=== PATIENT | female | born 1985 | race Caucasian/White ===

== ENCOUNTER 2021-11-30 06:23 | Day surgery (SDC) | payer OTHER ==
[2021-11-28 10:11] VITALS: BMI 26.5
[2021-11-30] MEDS ORDERED: AFRIN NASAL MIST 15 ML BOT ONE (07:24)
[2021-11-30 08:06] LABS: SARS-CoV-2 NAA Rapid Test Not Detected (NotDetected)
[2021-11-30] MEDS ORDERED: Xylocaine 1% w/ Epi 1:100K 10 ML VIAL ONE ×2 (08:45→09:49)
[2021-11-30] MEDS ORDERED: Oxymetazoline HCl 0.05% (30 ML BOT) ONE (08:45)
[2021-11-30] MEDS ORDERED: Fentanyl 100 MCG/2 ML VIAL ONE ×3 (08:48→10:22)
[2021-11-30] MEDS ORDERED: Lidocaine 1% PF 5 ML VIAL ONE (09:12)
[2021-11-30] MEDS ORDERED: Ondansetron PF 4 MG/2 ML Vial ONE ×2 (09:12→11:05)
[2021-11-30] MEDS ORDERED: Rocuronium Bromide 10 MG/ML (10ML VIAL) ONE (09:12)
[2021-11-30] MEDS ORDERED: PROPOFOL 200 MG/20 ML VIAL ONE (09:12)
[2021-11-30] MEDS ORDERED: Succinylcholine 200 MG/10 ml SYRINGE FS ONE (09:12)
[2021-11-30] MEDS ORDERED: Dexamethasone 20 MG/5 ML VIAL ONE (09:12)
[2021-11-30] MEDS ORDERED: methylPREDNISolone Sod Succ 40 MG VIAL ONE (09:29)
[2021-11-30] MEDS ORDERED: Morphine 4 MG/ML VIAL ONE (11:05)
[2021-11-30] MEDS ORDERED: HYDROcodone/Acetaminophen 5/325 mg Tablet ONE (11:38)
== END 2021-11-30 12:45 | disposition home or self-care (01) ==
LOC: SDC 06:23
PROVIDERS: ATTEND Otolaryngology Plastic Surgery within the Head & Neck
PROC: 099Q8ZZ Drainage of Right Maxillary Sinus, Via Natural or Artificial Opening Endoscopic (ICD-10-PCS; principal; 2021-11-30)
PROC: 09TU8ZZ Resection of Right Ethmoid Sinus, Via Natural or Artificial Opening Endoscopic (ICD-10-PCS; principal; 2021-11-30)
PROC: 09TL8ZZ Resection of Nasal Turbinate, Via Natural or Artificial Opening Endoscopic (ICD-10-PCS; principal; 2021-11-30)
PROC: 099R8ZZ Drainage of Left Maxillary Sinus, Via Natural or Artificial Opening Endoscopic (ICD-10-PCS; principal; 2021-11-30)
PROC: 09TV8ZZ Resection of Left Ethmoid Sinus, Via Natural or Artificial Opening Endoscopic (ICD-10-PCS; principal; 2021-11-30)
PROC: 8E09XBZ Computer Assisted Procedure of Head and Neck Region (ICD-10-PCS; principal; 2021-11-30)
DX: J32.9 Chronic sinusitis, unspecified (principal); J34.3 Hypertrophy of nasal turbinates; J34.89 Other specified disorders of nose and nasal sinuses; J30.89 Other allergic rhinitis; B48.8 Other specified mycoses; J33.8 Other polyp of sinus; F17.200 Nicotine dependence, unspecified, uncomplicated; H61.20 Impacted cerumen, unspecified ear; H93.8X3 Other specified disorders of ear, bilateral; Z86.16 Personal history of COVID-19; Z20.822 Contact with and (suspected) exposure to COVID-19
CPT/HCPCS: 85014; 85018; 87070; 87205; J2270; J2405; J2920; J3010; U0002